=== PATIENT | female | born 1950 | race Caucasian/White ===

== ENCOUNTER 2017-10-07 08:22 | Day surgery (SDC) | payer OTHER ==
[~2017-10-07] VITALS: Ht 163.8 cm; Wt 106.6 kg
[~2017-10-07 08:22] MED LIST: ASPIR-LOW81 MG PO; ATORVASTATIN CA20 MG PO; CALCIUM 600 +1 EAC4 PO; LEXAPRO10 MG PO; METOPROLOL SUCC25 MG PO; PANTOPRAZOLE SO40 MG PO; SYNTHROID75 MCG PO; VITAMIN D2000 UNIT PO
[2017-10-07 09:33] LABS: BASOPHIL COUNT 0.1 K/uL (0-0.1); EOSINOPHIL (%) 2.4 % (0-5); EOSINOPHIL COUNT 0.2 K/uL (0-0.3); HEMATOCRIT 37.7 % (36.0-46.0); IMMATURE GRANULOCYTE (%) 0.4 % (0.0-0.7); INSTRUMENT ABS NEUTROPHIL CT 4.3 K/uL; LYMPHOCYTE COUNT 1.7 K/uL (1.0-2.8); MCHC 31.3 G/DL (30.0-36.0); MCV 79.9 FL (83-99); MEAN PLAT.VOLUME 9.8 uM^3 (9.5-12.4); MONOCYTE (%) 7.3 % (3-12); MONOCYTE COUNT 0.5 K/uL (0-0.8); NEUTROPHIL (%) 64.2 % (45-76); NEUTROPHIL COUNT 4.3 K/uL (1.8-6.4); PLATELET COUNT 283 K/uL (156-360); RBC DIS.WIDTH-CV 15.1 % (11.8-14.6); RBC DIS.WIDTH-SD 43.4 % (39-53); RED BLOOD COUNT 4.72 M/uL (3.80-5.20); WHITE BLOOD COUNT 6.7 K/uL (4.1-10.2)
[2017-10-07 10:01] LABS: ANION GAP 9 MEQ/L (2-14); CHLORIDE 104 MEQ/L (99-109); GFR ESTIMATE (CALCULATED) > 59 mL/min/; GLUCOSE 99 mg/dL (70-99); POTASSIUM 4.4 MEQ/L (3.7-5.4); SAMPLE HEMOLYSIS CHECK 0; SAMPLE ICTERIC CHECK 0; SAMPLE LIPEMIA CHECK 0; SODIUM 137 MEQ/L (136-147); UREA NITROGEN (BUN) 14 mg/dL (9-23)
== END 2017-10-07 16:10 | disposition home or self-care (01) ==
LOC: CATH 08:22
PROVIDERS: Internal Medicine Cardiovascular Disease
DX: R07.9 Chest pain, unspecified (principal); R94.39 Abnormal result of other cardiovascular function study; I10 Essential (primary) hypertension; E78.5 Hyperlipidemia, unspecified; K21.9 Gastro-esophageal reflux disease without esophagitis; E66.9 Obesity, unspecified; Z68.39 Body mass index [BMI] 39.0-39.9, adult; E03.9 Hypothyroidism, unspecified; I51.7 Cardiomegaly; Z79.82 Long term (current) use of aspirin; Z82.49 Family history of ischemic heart disease and other diseases of the circulatory system
CPT/HCPCS: 80048; 85025; 93005; C1769; C1887; J1644; J2250; J3010

== ENCOUNTER → 2018-02-01 | Outpatient (CLI) | payer OTHER | END | disposition home or self-care (01) | DX: M17.11 Unilateral primary osteoarthritis, right knee (principal); R26.2 Difficulty in walking, not elsewhere classified; M25.561 Pain in right knee; M25.661 Stiffness of right knee, not elsewhere classified; M62.81 Muscle weakness (generalized); Z74.1 Need for assistance with personal care | CPT/HCPCS: 97161 GP; 97165 GO; 97530 GP; 97535 GO; G8978 GP; G8979 GP; G8980 GP; G8987 GO; G8988 GO; G8989 GO ==

== ENCOUNTER 2018-03-07 21:42 | Inpatient (IN) | payer OTHER ==
[~2018-03-07] VITALS: Ht 162.6 cm; Wt 108.0 kg
[~2018-03-07 21:42] MED LIST changes: +RANITIDINE HCL300 MG PO
[2018-03-08] MEDS ORDERED: NORVASC5 MG PO (05:51)
[2018-03-08 06:09] VITALS: BP 134/90
[2018-03-08 11:47] VITALS: BP 124/58
[2018-03-08 16:06] VITALS: BP 91/42
[2018-03-08 20:47] VITALS: BP 109/59
[2018-03-09] VITALS: BP 121/61
[2018-03-09 04:20] VITALS: BP 110/52
[2018-03-09 06:04] LABS: CHLORIDE 109 MEQ/L (99-109); CREATININE 0.8 MG/DL (0.6-1.3); GFR ESTIMATE (CALCULATED) > 59 mL/min/; GLUCOSE 104 mg/dL (70-99); POTASSIUM 5.4 MEQ/L (3.7-5.4); SODIUM 141 MEQ/L (136-147); UREA NITROGEN (BUN) 13 mg/dL (9-23)
[2018-03-09 08:00] VITALS: BP 126/75
[2018-03-09] MEDS ORDERED: ELIQUIS2.5 MG PO (08:35)
[2018-03-09] MEDS ORDERED: SENNA PLUS TAB1 EACH PO (08:35)
[2018-03-09] MEDS ORDERED: CELECOXIB200 MG PO ×2 (08:35→08:43)
[2018-03-09] MEDS ORDERED: ENDOCET 5-3251 EACH PO ×2 (08:35→08:43)
[2018-03-09 12:00] VITALS: BP 134/65
== END 2018-03-09 14:10 | DRG 470 ==
LOC: ENRESERV 21:42 → 2SOUTH 03-08 05:32 → 3WEST 03-08 11:16 → 2SOUTH 03-08 14:26 → 3WEST 03-09 14:10
PROVIDERS: Orthopaedic Surgery
PROC: 0SRC0J9 Replacement of Right Knee Joint with Synthetic Substitute, Cemented, Open Approach (ICD-10-PCS; principal; 2018-03-08)
DX: M17.11 Unilateral primary osteoarthritis, right knee (principal); I10 Essential (primary) hypertension; G47.33 Obstructive sleep apnea (adult) (pediatric); E03.9 Hypothyroidism, unspecified; E78.00 Pure hypercholesterolemia, unspecified; K21.9 Gastro-esophageal reflux disease without esophagitis; F32.9 Major depressive disorder, single episode, unspecified; E66.01 Morbid (severe) obesity due to excess calories; Z68.41 Body mass index [BMI] 40.0-44.9, adult
CPT/HCPCS: 80048; C1713; J0131; J0690; J1885; J2250; J2795; J3010; J7050; J7120; Q0175